=== PATIENT | female | born 1990 | race Caucasian/White ===

== ENCOUNTER 2018-10-19 10:05 | Day surgery (SDC) | payer MEDICAID ==
[~2018-10-19] VITALS: Ht 165.1 cm; Wt 101.9 kg
[2018-10-19] MEDS ORDERED: MOTRIN 600600 MG/TAB PO (12:57)
[2018-10-19] MEDS ORDERED: PERCOCET 325 MG1 TA2 PO (12:57)
[2018-10-19] MEDS ORDERED: COLACE 100100 MG/CAP PO (12:57)
[2018-10-19] MEDS ORDERED: [UNRECOGNIZED DRUG - REMARK] (13:00)
[2018-10-19 15:35] VITALS: BP 109/53; PULSE 81; TEMP 97.9
--- NOTE | 2018-10-19 15:35 | NUR ---
TO RM 6 PER CART FROM PACU. ALERT ORIENTED X3, TALKING TO STAFF AND FAMILY. DRESSING OVER INCISION SITES CLEAN DRY INTACT. C/O PAIN 01/28.
[2018-10-19 15:50] VITALS: BP 100/60; PULSE 83
--- NOTE | 2018-10-19 15:50 | NUR ---
RECEIVED WATER AND TAKING SIPS.
[2018-10-19 16:05] VITALS: BP 105/58; PULSE 68
--- NOTE | 2018-10-19 16:05 | NUR ---
RECEIVED MUFFIN AND APPLE JUICE.
[2018-10-19 16:26] VITALS: BP 143/69; PULSE 79; TEMP 97.9
[2018-10-19 16:30] VITALS: BP 96/75; PULSE 79
--- NOTE | 2018-10-19 16:30 | NUR ---
ATE 100% AND TOLERATED WELL
[2018-10-19 16:45] VITALS: BP 117/80; PULSE 84
--- NOTE | 2018-10-19 16:45 | NUR ---
UP AMBULATED TO BATHROOM. VOIDED AND TOLERATED WELL.
--- NOTE | 2018-10-19 16:53 | NUR ---
RECEIVED PAIN PERCOCET 1 TAB AND ENCOURAGED TO REST.
--- NOTE | 2018-10-19 17:05 | NUR ---
PATIENT STATED PAIN IS BETTER 3/10. RECEIVED DISCHARGE INSTRUCTIONS AND VERBALIZED UNDERSTANDING. DISCONTINUED IV AND INT- CATHETER INTACT
--- NOTE | 2018-10-19 17:20 | NUR ---
DISCHARGED PER WC BY NURSING STAFF TO PRIVATE CAR IN CARE OF [facility].
== END 2018-10-19 17:42 | disposition home or self-care (01) ==
LOC: SDCO 10:05
DX: K80.10 Calculus of gallbladder with chronic cholecystitis without obstruction (principal); E66.9 Obesity, unspecified; Z68.37 Body mass index [BMI] 37.0-37.9, adult; F17.210 Nicotine dependence, cigarettes, uncomplicated
CPT/HCPCS: J1100; J1170; J1885; J2405; J2704; J3010; J7120; Q9967